=== PATIENT | female | born 1990 ===

== ENCOUNTER 2021-04-06 10:46 | Outpatient (CLI) | payer OTHER | END 2021-04-06 12:23 | disposition home or self-care (01) | LOC: PRENATAL 10:46 | PROVIDERS: ATTEND Obstetrics & Gynecology Maternal & Fetal Medicine | DX: Z36.89 Encounter for other specified antenatal screening (principal); O36.80X1 Pregnancy with inconclusive fetal viability, fetus 1; Z3A.11 11 weeks gestation of pregnancy ==

== ENCOUNTER 2021-06-08 07:59 | Outpatient (CLI) | payer OTHER | END 2021-06-08 09:15 | disposition home or self-care (01) | LOC: PRENATAL 07:59 | PROVIDERS: ATTEND Obstetrics & Gynecology Maternal & Fetal Medicine | DX: O35.0XX1 Maternal care for (suspected) central nervous system malformation in fetus, fetus 1 (principal); O35.3XX1 Maternal care for (suspected) damage to fetus from viral disease in mother, fetus 1; O98.512 Other viral diseases complicating pregnancy, second trimester; Z36.89 Encounter for other specified antenatal screening; Z3A.20 20 weeks gestation of pregnancy ==

== ENCOUNTER 2021-08-31 08:54 | Outpatient (CLI) | payer OTHER | END 2021-08-31 09:50 | disposition home or self-care (01) | LOC: PRENATAL 08:54 | PROVIDERS: ATTEND Obstetrics & Gynecology Maternal & Fetal Medicine | DX: O26.849 Uterine size-date discrepancy, unspecified trimester (principal); O35.0XX0 Maternal care for (suspected) central nervous system malformation in fetus, not applicable or unspecified; Z3A.32 32 weeks gestation of pregnancy ==

== ENCOUNTER 2021-10-08 14:00 | Inpatient (IN) | payer OTHER ==
[~2021-10-08] VITALS: Ht 167.6 cm; Wt 3.2 kg
[2021-10-15] MEDS ORDERED: PRENATAL + DHA1 EAC1 (09:13)
== END 2021-10-16 13:17 | disposition home or self-care (01) | DRG 788 ==
LOC: LDR 10-13 14:00 → SURG-SUITE 10-13 17:18 → LDR 10-13 17:18 → OB/GYN 10-13 17:18 → LDR 10-13 17:46 → SURG-SUITE 10-14 04:53
PROVIDERS: ADMIT Obstetrics & Gynecology; ATTEND Obstetrics & Gynecology
PROC: 10D00Z1 Extraction of Products of Conception, Low, Open Approach (ICD-10-PCS; principal; 2021-10-13)
PROC: 4A1HXCZ Monitoring of Products of Conception, Cardiac Rate, External Approach (ICD-10-PCS; 2021-10-13)
DX: O62.1 Secondary uterine inertia (principal); O63.1 Prolonged second stage (of labor); Z3A.38 38 weeks gestation of pregnancy; Z37.0 Single live birth; Z20.822 Contact with and (suspected) exposure to COVID-19